=== PATIENT | female | born 1995 | race Two or more races ===

== ENCOUNTER 2018-07-11 00:54 | Emergency (ER) | payer OTHER ==
[~2018-07-11] VITALS: Ht 157.5 cm; Wt 74.8 kg
[2018-07-11 00:56] VITALS: BP 120/73
--- NOTE | 2018-07-11 01:00 | NUR ---
Amb to bed 4 with sister.
--- NOTE | 2018-07-11 01:00 | NUR ---
PT SEEN AND EVALUATED AT BEDSIDE BY DR ROSS. PT C/O ANXIETY X2 HRS. VSS. A&OX4. POSITIONED IN BED FOR COMFORT WITH FAMILY AT BEDSIDE. CONTINUE TO MONITOR.
[2018-07-11 01:15] VITALS: BP 120/73
--- NOTE | 2018-07-11 01:15 | NUR ---
Patient discharged with v/s stable. Written and verbal after care instructions given and explained. Patient verbalized understanding. Ambulatory with steady gait. All questions addressed prior to discharge. Advised to follow up with PMD.
== END 2018-07-11 01:15 | disposition home or self-care (01) ==
LOC: MED 00:54
DX: F41.0 Panic disorder [episodic paroxysmal anxiety] (principal); J45.909 Unspecified asthma, uncomplicated
CPT/HCPCS: 99281

== ENCOUNTER 2020-09-29 17:13 | Emergency (ER) | payer OTHER ==
[~2020-09-29] VITALS: Ht 157.5 cm; Wt 83.0 kg
--- NOTE | 2020-09-29 17:23 | NUR ---
Pt ambulated to ER bed 7 with a steady gait for bedside triage.
[2020-09-29 17:25] VITALS: BP 134/70
--- NOTE | 2020-09-29 17:29 | NUR ---
25 Y/O FEMALE C/O CHEST PAIN TO LEFT SIDE 10/19 DESCRIBES DULL AND INTERMITTENT X3DAYS AFTER RECEIVING PFIZER VACCINE. PT STATES PAIN IS WORSE WITH EXERTION, TOOK TYNENOL 1GM X5.5HRS AGO AND TUMS WITH NO RELIEF. DENIES N/V, DENIES FEVER/CHILLS. PMH: ASTHMA, MIGRAINES RX: TOPAMAX 100MG DAILY NKA
--- NOTE | 2020-09-29 17:56 | NUR ---
EMT at pt bedside for EKG.
--- NOTE | 2020-09-29 18:00 | NUR ---
JUDIE Eliasto at pt bedside for further evaluation.
[2020-09-29] MEDS ORDERED: PRED20TA5 PO (18:31)
[2020-09-29] MEDS ORDERED: IBUP-2213 PO (18:31)
[2020-09-29 18:55] VITALS: BP 134/70
== END 2020-09-29 18:56 | disposition home or self-care (01) ==
LOC: MED 17:13
DX: R07.2 Precordial pain (principal); J45.909 Unspecified asthma, uncomplicated; G43.909 Migraine, unspecified, not intractable, without status migrainosus
CPT/HCPCS: 93005; 99283

== ENCOUNTER 2020-10-21 05:14 | Emergency (ER) | payer OTHER ==
[~2020-10-21] VITALS: Ht 157.5 cm; Wt 83.9 kg
[~2020-10-21 05:14] MED LIST: IBUP-2213 PO; PRED20TA5 PO
--- NOTE | 2020-10-21 05:14 | NUR ---
KARELY HARRISON IN TRIAGE ASSESSING PATIENT FOR MEDICAL EVALUATION.
[2020-10-21 05:15] VITALS: BP 137/94
--- NOTE | 2020-10-21 05:15 | NUR ---
to bed ambulatory
[2020-10-21] MEDS ORDERED: KETOROLAC 30 MG/ML VIAL IM ONE (05:30)
[2020-10-21] MEDS ORDERED: ALBUTEROL SULFATE/IPRATROPIU 3 ML SOL IH ONE (05:30)
--- NOTE | 2020-10-21 05:30 | NUR ---
25 YO/F W C/O MIDSTERNAL ACHING/DULL CHEST PAIN THAT RADIATES TO HER L CHEST AND TO HER BACK LEVEL 4 OUT 0F 10 THAT COMES AND GOES THROUGHOUT THE DAY X1 MONTH LASTING ABOUT 1 HOUR AT A TIME. PATIENT REPORTS PAIN WORSENS AT REST OR W PHYSICAL EXCERTION. PATIENT REPORTS SYMPTOMS BEGAN S/P RECEIVING COVID-19 VACCINE. S1, S2 PRESENT. CAP REFILL <3 SEC, NO EDEMA NOTED. PATIENT ALSO REPORTS SOB. LUNG SOUNDS CLEAR BILATERALLY. PATIENT LAYING IN BED, HOB ELEVATED, LOCKED IN LOWEST POSITION. NO ACUTE DISTRESS NOTED. PMH:ASTHMA NKA
--- NOTE | 2020-10-21 05:36 | NUR ---
LAB AT BEDSIDE DRAWING BLOOD.
--- NOTE | 2020-10-21 05:45 | NUR ---
PROVIDED PATIENT W EDUCATION ON MEDICATION TORADOL. PATIENT DENIES , AND CONSENTS TO HAVING TORADOL ADMINISTERED.
[2020-10-21 05:47] LABS: BASOPHILS % (AUTO) 0.3 % (0.0-2.0); HEMATOCRIT 40.9 % (36-48); HEMOGLOBIN 13.8 g/dL (12.0-16.0); LYMPHOCYTES # (AUTO) 1.1 K/uL (2.5-16.5); LYMPHOCYTES % (AUTO) 8.7 % (20.5-51.1); MEAN CORPUSCULAR HEMOGLOBIN 30 pg (27-31); MEAN CORPUSCULAR HGB CONC 34 g/dL (33-37); MEAN CORPUSCULAR VOLUME 89.9 fL (80-94); MONOCYTES # (AUTO) 0.3 K/uL (0.8-1.0); MONOCYTES % (AUTO) 2.5 % (1.7-9.3); NEUTROPHILS # (AUTO) 11.4 K/uL (1.8-7.7); NEUTROPHILS % (AUTO) 88.5 % (42.2-75.2); PLATELET COUNT (AUTO) 310 K/uL (140-450); RED BLOOD CELL COUNT(AUTO) 4.55 MIL/uL (4.20-5.40); RED CELL DISTRIBUTION WIDTH 13.5 % (11.6-13.7); WHITE BLOOD COUNT (AUTO) 12.9 K/uL (4.8-10.8)
--- NOTE | 2020-10-21 05:52 | NUR ---
X-Ray at bedside.
[2020-10-21 05:59] LABS: ALBUMIN 4.5 g/dL (3.4-5.0); ANION GAP 14.4 (8-16); CARBON DIOXIDE 23.9 mmol/L (21-32); POTASSIUM 4.3 mmol/L (3.5-5.1); TOTAL BILIRUBIN 0.3 mg/dL (0.0-1.0)
[2020-10-21 06:55] VITALS: BP 142/84
== END 2020-10-21 06:55 | disposition home or self-care (01) ==
LOC: MED 05:14
DX: R07.89 Other chest pain (principal); J45.909 Unspecified asthma, uncomplicated; Z79.899 Other long term (current) drug therapy
CPT/HCPCS: 36415; 71045; 80053; 81002; 84484; 85025; 85379; 93005; 94640; 96372; 99284; J1885

== ENCOUNTER 2022-11-17 19:32 | Emergency (ER) | payer OTHER ==
[~2022-11-17] VITALS: Ht 157.5 cm; Wt 77.1 kg
[2022-11-17 19:35] VITALS: BP 134/81
--- NOTE | 2022-11-17 19:35 | NUR ---
TO BED AMBULATORY
--- NOTE | 2022-11-17 19:45 | NUR ---
Patient resting in bed, A/Ox4, chest rise and fall symmetrical, no c/o pain or s/s of distress, on monitor.
[2022-11-17] MEDS ORDERED: ALBUTEROL SULFATE/IPRATROPIU 3 ML SOL IH ONE ×2 (19:55→20:35)
--- NOTE | 2022-11-17 20:07 | NUR ---
Patient resting in bed, A/Ox4, chest rise and fall symmetrical, no s/s of distress, on monitor.
[2022-11-17] MEDS ORDERED: methylPREDNISolone SS 125 MG/2 ML VIAL IM ONE (20:35)
[2022-11-17] MEDS ORDERED: PRED20TA5 PO ×2 (21:46→22:00)
[2022-11-17 21:57] VITALS: BP 127/85
== END 2022-11-17 21:57 | disposition home or self-care (01) ==
LOC: MED 19:32
DX: J45.901 Unspecified asthma with (acute) exacerbation (principal); Z79.899 Other long term (current) drug therapy; Z79.1 Long term (current) use of non-steroidal anti-inflammatories (NSAID)
CPT/HCPCS: 71045; 81025; 93005; 94640; 96372; 99285; J2930